=== PATIENT | male | born 1980 | race Caucasian/White ===

== ENCOUNTER 2022-01-13 18:32 | Emergency (ER) | payer SELFPAY ==
[2022-01-13 18:41] VITALS: BP 120/77; PULSE 78; RESP 18; TEMP 37.2; O2SAT 100
--- NOTE | 2022-01-13 20:11 | ED_ITS ---
HPI - Skin/Abscess/Foreign Bdy General Chief complaint: Skin/Abscess/Foreign Body Stated complaint: cyst Time Seen by Provider: 01/13/22 18:54 History of Present Illness HPI narrative: 41-year-old male presents the emergency room with complaints of multiple painful cysts on his back. Patient states that they have been there for several months, but have gradually been increasing in size causing him discomfort. Denies fever. Related Data Allergies Allergy/AdvReac Type Severity Reaction Status Date / Time No Known Allergies Allergy Verified 01/13/22 18:43 Review of Systems Review of Systems: CONSTITUTIONAL: Denies fever, chills, or sweats. EYES: Denies visual changes, redness, or discharge. ENT: Denies rhinorrhea, congestion, sore throat, or otalgia. CARDIOVASCULAR: Denies chest pain, palpitations, or edema. RESPIRATORY: Denies cough or dyspnea. GASTROINTESTINAL: Denies abdominal pain, nausea, vomiting, or diarrhea. GENITOURINARY: Denies dysuria or hematuria. SKIN: Reports painful cysts on back MUSCULOSKELETAL: Denies back pain, joint pain, or myalgia. NEUROLOGIC: Denies headache, numbness, dizziness, or weakness. PSYCHIATRIC: Denies anxiety or depression. Exam Narrative: GENERAL: Well-appearing, well-nourished, and in no acute distress. HEAD: Normocephalic, atraumatic. EYES: PERRLA and EOMI. CHEST: Clear to auscultation. No respiratory distress. No wheezes rales or rhonchi HEART: Regular rate and rhythm. No murmur heard. Normal peripheral pulses. ABDOMEN: Soft, nontender, nondistended, normal active bowel sounds. EXTREMITIES: Normal range of motion. No edema. SKIN: Warm, dry, no rash. Multiple fluctuant non-erythematous masses on his right scapula NEURO: No focal deficits. Alert and oriented x3. PSYCH: Normal mood and affect. Course Vital Signs Vital signs: Vital Signs Temperature 37.2 C 01/13/22 18:41 Pulse Rate 78 01/13/22 18:41 Respiratory Rate 18 01/13/22 18:41 Blood Pressure 120/77 01/13/22 18:41 Pulse Oximetry 100 01/13/22 18:41 Temperature 37.2 C 01/13/22 18:41 Pulse Rate 78 01/13/22 18:41 Respiratory Rate 18 01/13/22 18:41 Blood Pressure 120/77 01/13/22 18:41 Pulse Oximetry 100 01/13/22 18:41 Procedures Abscess I/D back: Date of Incision: 01/13/22 Time of Incision: 21:10 Side (if applicable): right Sedation/analgesia: none Local Anesthetic: lidocaine 1% and with epi Amount of anesthesia used (mL): 4 Technique: incised with #11 blade Amount of fluid expressed (mL): 30 Irrigation: Yes Packing used?: plain I&D Results: Other (Hannah) Discharge Plan Discharge Clinical Impression: Abscess of skin or subcutaneous tissue Qualifiers: Site of cutaneous abscess: trunk Site of cutaneous abscess of trunk: back Qualified Code(s): L02.212 - Cutaneous abscess of back [any part, except buttock] Patient Disposition: Home, Self-Care Condition: Stable Instructions: Antibiotic Form, Abscess (ED) Prescriptions: New cephalexin 500 mg capsule 500 mg PO Q12H Qty: 20 RF: 0 Follow-up/Referrals: PHYSICIAN,ENGRAVED [employer]LLER INSPECTOR [Primary Care Provider] - Time of Disposition: 21:11
[2022-01-13 21:36] VITALS: BP 118/77; PULSE 66; RESP 17; TEMP 36.9; O2SAT 97
== END 2022-01-13 21:45 | disposition home or self-care (01) ==
LOC: ANHED 21:24
PROVIDERS: Emergency Provider Nurse Practitioner Family
DX: L02.212 Cutaneous abscess of back [any part, except buttock and flank] (principal)
CPT/HCPCS: 10061; 99283